=== PATIENT | female | born 1975 | race African-American/Black ===

== ENCOUNTER 2017-03-12 04:29 | Observation (INO) ==
[2017-03-12] MEDS ORDERED: ASPIRIN 325 MG TABLET ONE (05:10)
[2017-03-12] MEDS ORDERED: ASPIRIN 325 MG TABLET PO STA (05:20)
[2017-03-12 05:41] LABS: Basophils # 0.1 10*3/uL (0.0-0.2); Basophils % 0.5 % (0.0-0.8); Eosinophils # 0.3 10*3/uL (0.0-0.87); Eosinophils % 2.5 % (0.00-10.9); Hematocrit 42.7 VOL% (35.7-47.0); Immature Granulocytes % 0.3 %; Immature Granulocytes Absolute 0.03 #; Lymphocytes # 3.5 10*3/uL (1.4-4.0); Mean Corpuscular HGB Conc 32.8 GM/DL (32-36); Mean Corpuscular Hemoglobin 28 PG (27-34); Mean Corpuscular Volume 86.1 FL (87-102); Mean Platelet Volume 12.2 FL (9.6-12.0); Monocytes # 0.9 10*3/uL (0.11-0.8); Monocytes % 8.5 % (1.7-12.7); Neutrophils # 6.2 10*3/uL (1.4-7.4); Neutrophils % 56.2 % (38.7-73.9); Platelet Count 210 T/CUMM (130-400); Red Blood Count 4.96 MC/CUMM (3.8-5.5); Red Cell Distribution Width 15.1 % (9.3-17.3)
--- NOTE | 2017-03-12 06:02 | Emergency Department Note ---
IErick Kasabria, am scribing for, and in the presence of, Katarina Florez DO 05 :37. I, Katarina Florez DO, personally performed the services described in this documentation, ascribed by Andreea Suarez in my presence, and it is both accurate and complete 601 . Arrival - Arrival ED Nursing Triage Note: pt ambulatory to [facility] [place] with c/o right sided chest pain that started at 0400, patient states she vomited at 0330. thought she was having heartburn but became sob so came to be checked out. 02 sat on ra 97% in triage. denies cp in triage. Mode of Arrival: Ambulatory Limitations: No Limitations Source: Patient - History of Present Illness Consistency: constant Severity: moderate <Katarina Florez - Last Filed: 03/12/17 06:01> <Jerardo Mary - Last Filed: 03/12/17 06:48> - Arrival Chief Complaint: Chest Pain Stated Complaint: sob and chest pain Time Seen by Provider: 03/12/17 05:20 - History of Present Illness HPI Narrative: This is a 41 y/o black female presenting to the ED with c/o chest pain that onset this morning at 0300. She states she thought it was indigestion so she went to the store and go Xantac. Immediately following she vomited and her chest pain began to worsen. The pain is to the right side. Pt denies being in pain while obtaining the HPI. Pt sees Dr. Falcon for a cardiac evaluation and it was benign. She denies fever, chills, abdominal pain, back pain, and dysuria. Her PMHx is consistent with HTN. (Andreea Suarez) This is a 41 y/o black female presenting to the ED with c/o chest pain that onset this morning at 0300. She states she thought it was indigestion so she went to the store and go Xantac. Immediately following she vomited and her chest pain began to worsen. The pain is to the right side. Pt denies being in pain while obtaining the HPI. Pt sees Dr. Falcon for a cardiac evaluation and it was benign. She denies fever, chills, abdominal pain, back pain, and dysuria. Her PMHx is consistent with HTN. (Florez,Katarina) Allergies/Adverse Reactions: Allergies Allergy/AdvReac Type Severity Reaction Status Date / Time acetaminophen [From Tylenol] AdvReac Intermediate Nausea Verified 03/16/16 11:58 escitalopram [From Lexapro] AdvReac Intermediate Nausea Verified 03/16/16 11:43 Home Medications: Home Medications Medication Instructions Recorded Confirmed Type Lisinopril/Hydrochlorothiazide 1 tablet PO DAILY 12/16/15 03/12/17 History [Lisinopril-Hctz 20-25 mg Tab] ALPRAZolam [Xanax] 1 mg PO BID PRN 08/21/16 03/12/17 History Hydrocodone/Acetaminophen [Lortab 1 each PO TID PRN 08/21/16 03/12/17 History 10-325 mg Tablet] Review of System - Review of System 12 point system: reviewed and no additional remarkable complaints except as stated - Review of System Constitutional: Absent: chills, fever, weakness Eyes: Absent: redness, vision change Head/Ears/Nose/Throat: Absent: nasal drainage Respiratory: Absent: cough, wheezing Cardiovascular: Present: chest pain (right sided ). Absent: dyspnea on exertion Gastrointestinal: Present: nausea, vomiting. Absent: abdominal pain, diarrhea Genitourinary female: Absent: dysuria Musculoskeletal: Absent: arm pain, back pain, leg pain Skin: Absent: rash Neurological: Absent: headache, weakness, confusion, vertigo Psychiatric: Absent: anxiety Endocrine: Absent: fatigue Hematological/Lymphatic: Absent: easy bleeding Allergic/Immunologic: Absent: facial swelling <Katarina Florez - Last Filed: 03/12/17 06:01> Medical,Surgical,& Family Hx - Medical History Cardio: History of: Hypertension Psychological: History of: Anxiety Disorders Neurology: No history of: Seizures Musculoskeletal: History of: Back/Neck Problems, Herniated Disk - Surgical History Thoracic Surgeries: Patient denies;: Lobectomy Neurologic Surgeries: Patient denies: Neurologic Surgery Reproductive Surgeries: Surgical HX of;: Gynecologic Surgery, Tubal Ligation Patient denies;: Genitourinary Surgery - Social History Smoking Status: Current every day smoker Frequency of Alcohol Use: None Type of Drug Use: None <Katarina Florez - Last Filed: 03/12/17 06:01> Exam - General General appearance: alert, in no apparent distress - Head Head exam: Present: atraumatic, normocephalic, normal inspection - Eye Eye exam: Present: normal appearance, PERRL, EOMI - ENT ENT exam: Present: normal exam, normal oropharynx, mucous membranes moist, TM's normal bilaterally, normal external ear exam - Neck Neck exam: Present: normal inspection, full ROM, trachea midline. Absent: tenderness - Chest Chest inspection: Present: normal inspection, symmetric chest wall rise. Absent : tenderness - Respiratory Respiratory exam: Present: normal lung sounds bilaterally - Cardiovascular Cardiovascular exam: Present: regular rate, normal rhythm, normal heart sounds - Abdominal Exam Abdominal exam: Present: soft, normal bowel sounds. Absent: distention, tenderness - Extremities Exam Extremities exam: Present: normal inspection, full ROM, normal capillary refill. Absent: tenderness, pedal edema, calf tenderness - Back Exam Back exam: Present: normal inspection, full ROM. Absent: tenderness - Neurological Exam Neurological exam: Present: alert, oriented X3, CN II-XII intact, normal gait, reflexes normal - Psychiatric Psychiatric exam: Present: normal affect, normal mood - Skin Skin exam: Present: warm, dry, intact, normal color. Absent: diaphoresis <Katarina Florez - Last Filed: 03/12/17 06:01> Vital Signs: Vital Signs Temperature 97.5 F L 03/12/17 05:18 Pulse Rate 81 03/12/17 05:18 Respiratory Rate 20 03/12/17 05:18 Blood Pressure 124/84 03/12/17 05:18 O2 Sat by Pulse Oximetry 97 03/12/17 04:38 Course <Katarina Florez - Last Filed: 03/12/17 06:01> - Consultations Time: 06:48 <Jerardo Mary - Last Filed: 03/12/17 06:48> Course Narrative: Care assumed from Dr. Florez at 6 AM. (Jerardo Mary) - Consultations Consultation #1: Discussed with hospitalist. Patient will be admitted to their service. (Jerardo Mary) Results <Katarina Florez - Last Filed: 03/12/17 06:01> - Labs CBC & BMP: 03/12/17 05:07 03/12/17 05:07 Lab Results: I have reviewed the patients labs - EKG EKG results: interpreted by ERMD - Diagnostic Findings Procedure: Chest x-ray: image reviewed by me (No cardiomegaly, no pleural effusions, no infiltrates.) <Jerardo Mary - Last Filed: 03/12/17 06:48> - Labs Labs: Laboratory Tests 03/12/17 05:07 Troponin I < 0.015 (Jerardo Mary) - Impressions EKG: Normal sinus rhythm with rate of 78, normal ST-T waves, normal axis. (Jerardo Mary) Disposition <Katarina Florez - Last Filed: 03/12/17 06:01> Case discussed with: patient <Jerardo Mary - Last Filed: 03/12/17 06:48> Clinical Impression: Chest pain Disposition: Still a Patient Condition: Stable
[2017-03-12 06:10] LABS: Alanine Aminotransferase 28 U/L (13-56); Albumin 3.6 G/DL (3.4-5.0); Alkaline Phosphatase 62 U/L (45-117); Aspartate Amino Transferase 40 U/L (0-37); Blood Urea Nitrogen 18 MG/DL (7-18); Calcium 8.3 MG/DL (8.5-10.1); Glucose 94 MG/DL (74-106); Potassium 4.7 MMOL/L (3.5-5.1); Sodium 136 MMOL/L (136-145); Total Protein 6.8 G/DL (6.4-8.3); Troponin I Only < 0.015 NG/ML (0.00-0.045)
[2017-03-12 06:11] LABS: PT Patient Result 10.1 SECS; Partial Thromboplastin Time 29.4 SECS (0-40)
--- NOTE | 2017-03-12 07:16 | Hospitalist History & Physical ---
Assessment and Plan (1) Hypertension Status: Acute Assessment and plan: Blood pressures are stable now. We will restart home medication regimen and monitor blood pressures during the clinical encounter. Current Visit: Yes Qualifiers: Hypertension type: essential hypertension Qualified Code(s): I10 - Essential (primary) hypertension (2) Obesity Status: Acute Assessment and plan: Patient reported recent initiation of weight loss medications to assist with weight loss. Spoke in great detail with patient on known cardiovascular effects associated with the use of these agents. Current Visit: Yes Qualifiers: Obesity type: due to excess calories (3) Chest pain Status: Acute Assessment and plan: We will admit and perform complete cardiac work-up. Given the known risk factors ; the patient is at an increased risk for cardiac event. Current Visit: Yes Qualifiers: Chest pain type: unspecified Qualified Code(s): R07.9 - Chest pain, unspecified (4) Nicotine addiction Status: Acute Assessment and plan: The patient reports current nicotine use. Spoke in great detail the importance of cessation. Nicotine patch offered. Current Visit: Yes Qualifiers: Nicotine product type: cigarettes History of Present Illness Chief complaint: chest pain History of present illness: This is a 41 year old female that presented to the ED at [facility] this morning for the evaluation of right-sided chest pain. The patient has a medical history of hypertension, anxiety, nicotine addiction, chronic neck and back pain, depression, and morbid obesity. The patient has a surgical history of tubal ligation.She reported the onset of pain on this morning at 0300. She initially thought that she was having indigestion; so she went to the store and bought a coca-cola and Zantac. The reported that she took the medication with a small amount of the cola and started vomiting immediately. She reported that her chest pain began to immediately worsen and she started to experience shortness of breath. She became alarmed and drove to the ED for evaluation. The patient reported a previous episode in nature in the past. She reports that she was evaluated by Dr. Lowery for a cardiac evaluation which was essentially benign. She was given nitroglycerin for emergent use; however she reports that she has never had to use it. In addition, the patient reports a recent start of Adipex for weight loss. She reported that she started them on Sunday of last week; however she only takes half of the dose. Labs were obtained which were essentially unremarkable. Cardiac enzymes were obtained which revealed Total CK of 240, troponin of <0.015, and CKMB of <1.0. Chest radiograph was negative for acute processes. After brief discussion with both Dr. Florez and Dr. Rutledge, the patient will be admitted to the hospitalist service for continuation of care. Home Medications Medication Instructions Recorded Confirmed Type Lisinopril/Hydrochlorothiazide 1 tablet PO DAILY 12/16/15 03/12/17 History [Lisinopril-Hctz 20-25 mg Tab] ALPRAZolam [Xanax] 1 mg PO BID PRN 08/21/16 03/12/17 History Hydrocodone/Acetaminophen [Lortab 1 each PO TID PRN 08/21/16 03/12/17 History 10-325 mg Tablet] Allergies Allergy/AdvReac Type Severity Reaction Status Date / Time acetaminophen [From Tylenol] AdvReac Intermediate Nausea Verified 03/16/16 11:58 escitalopram [From Lexapro] AdvReac Intermediate Nausea Verified 03/16/16 11:43 Medical,Surgical,& Family Hx - Medical History Cardio: History of: Hypertension Psychological: History of: Anxiety Disorders Neurology: No history of: Seizures Musculoskeletal: History of: Back/Neck Problems, Herniated Disk - Surgical History Thoracic Surgeries: Patient denies;: Lobectomy Neurologic Surgeries: Patient denies: Neurologic Surgery Reproductive Surgeries: Surgical HX of;: Gynecologic Surgery, Tubal Ligation Patient denies;: Genitourinary Surgery - Social History Smoking Status: Current every day smoker Frequency of Alcohol Use: None Type of Drug Use: None 12 point system: reviewed and no additional remarkable complaints except as stated Exam - Constitutional Vitals: Period Temp Pulse Resp BP Sys/Hutson Pulse Ox Last 24 Hr 97.5 F-97.5 F 77-81 18-20 124-124/84-84 97 General appearance: no acute distress, over weight - Head Head exam: Present: normal inspection, normocephalic, atraumatic - Eye Eye exam: Present: EOMI. Absent: conjunctival injection Pupils: Present: RACHEL, normal accommodation - ENT ENT exam: Present: normal exam, normal external ear exam, normal oropharynx - Neck Neck exam: Present: normal inspection. Absent: lymphadenopathy, meningismus, tenderness, thyromegaly - Respiratory Respiratory exam: Present: clear to auscultation bilaterally. Absent: rales, rhonchi, stridor, wheezes - Cardiovascular Cardiovascular exam: Present: regular rate and rhythm. Absent: carotid bruit, diastolic murmur, gallop, JVD, rubs, systolic murmur - GI/Abdominal GI/Abdominal exam: Present: normal bowel sounds, soft - Extremities Exam Extremities exam: Present: normal inspection, normal capillary refill, full ROM. Absent: calf tenderness, edema - Back Exam Back exam: Present: normal inspection - Neurological Exam Neurological exam: Present: alert, oriented X3, CN II-XII intact - Psychiatric Psychiatric exam: Present: normal affect, normal mood - Skin Skin exam: Present: normal color, warm, dry Results - Labs CBC & BMP: 03/12/17 05:07 03/12/17 05:07 Lab Results: I have reviewed the past 24 hour labs
--- NOTE | 2017-03-12 09:35 | XRay Report ---
Portable chest Date: 03/12/2017 Clinical history: Shortness of breath Comparison: 11/22/2015 Technique: Portable AP sitting chest Findings: The heart is minimally larger in size. Progressive diffuse parenchymal findings especially at the lung bases. Stable mediastinum and osseous structures. Impression: Minimal atelectasis/infiltration/edema at the lung bases. PROCEDURE INTERPRETED AT [facility] DEPARTMENT OF RADIOLOGY Final Report Signed by: Dr. Marjorie Segura
[2017-03-12] MEDS ORDERED: ACETAMINOPHEN 325 MG TABLET PO PRN (12:32)
[2017-03-12] MEDS ORDERED: ONDANSETRON 4 MG/2 ML VIAL IV PRN (12:32)
[2017-03-12] MEDS: SODIUM CHLORIDE 0.9% 1,000 ML IV SCH (12:55)
[2017-03-12] MEDS ORDERED: ALPRAZolam 0.5 MG TABLET PO PRN (13:00)
[2017-03-12] MEDS ORDERED: ENOXAPARIN 40 MG/0.4 ML SYRINGE SUBCUT SCH (13:00)
--- NOTE | 2017-03-12 13:07 | Cardiology Consult Note ---
Assessment and Plan - Time spent with patient Time spent with patient: Less than 30 minutes (1) Heartburn Status: Acute Assessment and plan: This is the patient's complaint. She has normal EKG and first set of biomarkers are negative. She had an ischemic screening approximately 1 year ago according to her history. This is before the current acute computer system at [facility] I am unable to get the data. She has not had any exertional chest discomfort prior to this time I recommend that we rule out myocardial infarction with serial cardiac biomarkers and if this is negative she may have workup as an outpatient from a cardiovascular standpoint I would recommend discontinuation of her Adipex at this time. She did partake of alcoholic beverages yesterday which could have precipitated some gastritis and this in fact may be true heartburn. I would recommend getting lipids. Current Visit: Yes (2) Hypertension Status: Chronic Current Visit: Yes Qualifiers: Hypertension type: essential hypertension Qualified Code(s): I10 - Essential (primary) hypertension (3) Obesity Status: Chronic Current Visit: Yes Qualifiers: Obesity type: due to excess calories (4) Nicotine addiction Status: Chronic Current Visit: Yes Qualifiers: Nicotine product type: cigarettes History of Present Illness - Data of Consult Patient: known to practice within the last 3 years Consult date: 03/12/17 Requesting Physician: Keyon Rutledge Primary care physician: Chasity Falcon - Consult Narrative Reason for consult: Heartburn History of present illness: Ms. Reed is a 41 year old female who was awakened this morning around 3: 00 with what she thought was heartburn. She went to the local store and purchase some Zantac which she took and subsequently threw up she states that she felt better after this. She has not had any chest pain since one year ago when she was evaluated by Dr. Falcon and told that everything was "okay." She denies orthopnea lower extremity edema chest pain when she exerts herself. She denies any alcohol to excess however she states that she drank a daiquiri yesterday she does not partake of recreational drugs but she does smoke 1 pack of cigarettes a day. She has no family history of known coronary disease and no dyslipidemia. She is admitted to the hospital service and I was asked to see for chest pain in his heartburn. I reviewed her EKG is completely normal her first set of cardiac biomarkers are normal. Her only identifiable risk factors hypertension. She did state that she has recently been started on Adipex for weight loss. CC: Keyon Rutledge MD - Home Medications and Allergies Home Medications: Home Medications Medication Instructions Recorded Confirmed Type Lisinopril/Hydrochlorothiazide 1 tablet PO DAILY 12/16/15 03/12/17 History [Lisinopril-Hctz 20-25 mg Tab] ALPRAZolam [Xanax] 1 mg PO BID PRN 08/21/16 03/12/17 History Hydrocodone/Acetaminophen [Lortab 1 each PO TID PRN 08/21/16 03/12/17 History 10-325 mg Tablet] Allergies/Adverse Reactions: Allergies Allergy/AdvReac Type Severity Reaction Status Date / Time acetaminophen [From Tylenol] AdvReac Intermediate Nausea Verified 03/16/16 11:58 escitalopram [From Lexapro] AdvReac Intermediate Nausea Verified 03/16/16 11:43 - Constitutional Constitutional: Present: weight gain. Absent: anorexia, chills, malaise, night sweats - EENT Eyes: Absent: blurry vision, diplopia Ears: Absent: decreased hearing, ear discharge Nose, mouth and throat: Absent: dysphagia, epistaxis, headache(s), nasal congestion - Cardiovascular Cardiovascular: Absent: chest pain at rest, dyspnea, dyspnea on exertion, edema , orthopnea, palpitations - Respiratory Respiratory: Absent: cough, dyspnea on exertion - Gastrointestinal Gastrointestinal: Present: heartburn. Absent: change in bowel habits, coffee ground emesis, constipation, cramping, diarrhea, dyspepsia - Genitourinary Genitourinary: Absent: dysuria, flank pain - Musculoskeletal Musculoskeletal: Absent: arthralgias, joint swelling - Neurological Neurological: Absent: abnormal gait, abnormal speech, disequilibrium - Psychiatric Psychiatric: Present: anxiety - Endocrine Endocrine: Present: heat intolerance. Absent: cold intolerance - Hematologic/Lymphatic Hematologic/Lymphatic: Absent: easy bleeding, easy bruising Medical,Surgical,& Family Hx - Medical History Cardio: History of: Hypertension Psychological: History of: Anxiety Disorders Neurology: No history of: Seizures Musculoskeletal: History of: Back/Neck Problems, Herniated Disk - Surgical History Thoracic Surgeries: Patient denies;: Lobectomy Neurologic Surgeries: Patient denies: Neurologic Surgery Reproductive Surgeries: Surgical HX of;: Gynecologic Surgery (BTL), Tubal Ligation Patient denies;: Genitourinary Surgery - Social History Smoking Status: Current every day smoker Frequency of Alcohol Use: Rarely Type of Drug Use: None Marital Status: Lives With:: Children Functional capacity: independent ambulation Physical Examination Vital Signs Temp Pulse Resp BP Pulse Ox 97.5 F L 81 20 124/84 97 03/12/17 04:38 03/12/17 04:38 03/12/17 04:38 03/12/17 04:38 03/12/17 04:38 General: Present: Appears Well, Other (She is overweight) Neck: Present: Supple Neck, Midline Trachea Cardiac: Present: Reg Rate and Rhythm, S1/S2 Lungs: Present: Normal Exam Neuro: Present: Cranial Nerve 2-12 Intact Abdomen: Present: Soft, Active Bowel Sounds Skin: Present: Clear Musculoskeletal: Present: Erythematous Joints Gait: Present: Normal Gait Extremities: Present: Normal Gait, No Clubbing, No Cyanosis, No Edema. Absent: Edema Result/EKG - Labs CBC & BMP: 03/12/17 05:07 03/12/17 05:07 Labs: Laboratory Results - last 24 hr 03/12/17 03/12/17 03/12/17 05:07 05:07 05:07 WBC 11.0 RBC 4.96 Hgb 14.0 Hct 42.7 MCV 86.1 L MCH 28 MCHC 32.8 RDW 15.1 Plt Count 210 MPV 12.2 H Neut % (Auto) 56.2 Lymph % (Auto) 32.0 Republic % (Auto) 8.5 Eos % (Auto) 2.5 Baso % (Auto) 0.5 Neut # (Auto) 6.2 Lymph # (Auto) 3.5 Republic # (Auto) 0.9 H Eos # (Auto) 0.3 Baso # (Auto) 0.1 Immature Gran % 0.3 Nucleated RBC % 0.0 Immature Gran # 0.03 Nucleated RBCs # 0.00 INR 1.0 PT Patient/Control Mix 10.1 Circ Anticoag PTT 29.4 Sodium 136 Potassium 4.7 Chloride 104 Carbon Dioxide 24 Anion Gap 12.7 BUN 18 Creatinine 0.80 GFR Calculation 121 BUN/Creatinine Ratio 22.00 H Glucose 94 Calculated Osmolality 273.0 Calcium 8.3 L Total Bilirubin 0.40 AST 40 H ALT 28 Alkaline Phosphatase 62 Total Creatine Kinase 240 H CK-MB (CK-2) < 1.0 Troponin I < 0.015 Total Protein 6.8 Albumin 3.6 Globulin 3.2 Albumin/Globulin Ratio 1.1 - EKG EKG results: interpreted by me, WNL
--- NOTE | 2017-03-12 13:30 | EKG Report ---
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
[2017-03-12 13:41] LABS: Risk Ratio 4.61; VLDL CHOLESTEROL 50.2 MG/DL
[2017-03-12] MEDS: NICOTINE 21 MG/24 HR PATCH TRANSDERM SCH (13:48)
[2017-03-13] MEDS: SODIUM CHLORIDE 0.9% 1,000 ML IV SCH (04:46)
[2017-03-13 05:49] LABS: Calcium 8.3 MG/DL (8.5-10.1); Magnesium 2.2 MG/DL (1.8-2.4); Osmolality,Calculated 281.3 MOS/KG (273-304); Potassium 4.5 MMOL/L (3.5-5.1)
[2017-03-13 06:38] LABS: Basophils # 0.1 10*3/uL (0.0-0.2); Basophils % 0.7 % (0.0-0.8); Eosinophils # 0.3 10*3/uL (0.0-0.87); Eosinophils % 3.8 % (0.00-10.9); Hematocrit 40.8 VOL% (35.7-47.0); Hemoglobin 13.3 GM/DL (12.0-16.0); Immature Granulocytes % 0.1 %; Immature Granulocytes Absolute 0.01 #; Lymphocytes # 3.5 10*3/uL (1.4-4.0); Lymphocytes % 46.1 % (21.3-54.2); Mean Corpuscular HGB Conc 32.6 GM/DL (32-36); Mean Corpuscular Hemoglobin 28 PG (27-34); Mean Corpuscular Volume 85.9 FL (87-102); Mean Platelet Volume 11.3 FL (9.6-12.0); Monocytes # 0.6 10*3/uL (0.11-0.8); Monocytes % 7.2 % (1.7-12.7); Neutrophils # 3.2 10*3/uL (1.4-7.4); Neutrophils % 42.1 % (38.7-73.9); Platelet Count 200 T/CUMM (130-400); Red Blood Count 4.75 MC/CUMM (3.8-5.5); Red Cell Distribution Width 14.9 % (9.3-17.3); White Blood Count 7.6 T/CUMM (4-12)
--- NOTE | 2017-03-13 08:33 | EKG Report ---
Stationary ECG Study [facility] Test Date: 03/12/2017 4:52:44 AM Pat Name: FACUNDO DUFF Department: Room: 284 Gender: F Program Director Substance Abuse: : 1975 Requested by: Jerardo Tripp Order Number: [id number] Reading MD: MATT ZAMORA Intervals [place] Rate: 78 P: 68 IA: 161 QRS: 88 QRSD: 89 T: 66 QT: 365 QTc: 398 Interpretive Statements SINUS RHYTHM Electronically Signed On 03-14-17 20:22:07 CDT by MATT ZAMORA [email or web address]
[2017-03-13] MEDS ORDERED: LISINOPRIL/HCTZ 20-25 MG TABLET PO SCH (09:00)
[2017-03-13] MEDS ORDERED: ASPIRIN EC 81 MG TABLET PO SCH (09:00)
[2017-03-13] MEDS ORDERED: PANTOPRAZOLE 40 MG TABLET PO SCH (09:00)
--- NOTE | 2017-03-13 09:36 | Cardiology Progress Note ---
<Amita Lowe - Last Filed: 03/13/17 10:49> Assessment and Plan (1) Atypical chest pain Status: Resolved Assessment and plan: See plan of care listed below. Current Visit: Yes (2) Hypertension Status: Chronic Assessment and plan: See plan of care listed below. Current Visit: Yes Qualifiers: Hypertension type: essential hypertension Qualified Code(s): I10 - Essential (primary) hypertension (3) Nicotine addiction Status: Chronic Assessment and plan: See plan of care listed below. Current Visit: Yes Qualifiers: Nicotine product type: cigarettes (4) Obesity Status: Chronic Assessment and plan: See plan of care listed below. Current Visit: Yes Qualifiers: Obesity type: due to excess calories (5) Hypertriglyceridemia Status: Acute Assessment and plan: See plan of care listed below. Current Visit: Yes Cardiology - PN: Subj Interval history: Regional Transfer Liaison: New to cardiology SUMMARY: Ms. Reed is a 41 year old female who presented with what she thought was heartburn. She is admitted to the hospital service and Cardiology was asked to see to further evaluate. PMH includes: Hypertension and anxiety. Reports that she was recently started on Adipex for weight loss. She has normal EKG and cardiac biomarkers are negative. She had an ischemic screening approximately 1 year ago according to her history. This is before the current computer system at [facility] and unable to get the data. Lipids were reviewed. Triglycerides are noted to be 251. March 13, 2017 Update: Patient has done well overnight. This morning, she is without chest pain, heaviness and tightness. However, she does report that she had mild chest discomfort last night after eating lasagna. She describes as a sharp midsternal pain. Nonradiating. Consistent with heartburn. Labs have been reviewed, overall unremarkable. Troponin has been negative 3. EKG unremarkable. Triglycerides noted to be 251. Will order hemoglobin A1c. Vital signs are stable. Patient is currently normal sinus rhythm with heart rates in the 60s without any overt arrhythmias or ectopy noted. Assessment/plan: 1. ATYPICAL CHEST PAIN - Currently without chest pain, heaviness and tightness. No exertional chest discomfort prior to admission. Troponin has been negative 3. EKG is unremarkable. Patient has ruled out for myocardial infarction. At this point, patient's symptoms are most consistent with heartburn. Recommend to continue PPI and discontinue Adipex. After discussing with Dr. Putnam, we will sign off. Will schedule patient a follow-up appointment with Dr. Putnam to discuss the need for further cardiac workup as an outpatient. 2. HYPERTENSION - Well controlled. Continue current plan of care. 3. OBESITY - Weight loss encouraged. 4. HYPERTRIGLYCERIDEMIA - Will check hemoglobin A1c. Defer further management to attending. 5. TOBACCO ABUSE - Smoking cessation encouraged. Exam (Progress Note) - Constitutional Vitals: Period Temp Pulse Resp BP Sys/Hutson Pulse Ox Last 24 Hr 96.9 F-98.6 F 62-83 16-20 105-142/59-81 96-99 Exam: General: Appears well with no apparent distress. Pleasant and cooperative. Appears comfortable. HEENT: PERRL, normocephalic, atraumatic. Mucous membranes moist. No jaundice noted. Conjunctiva moist and clear, sclerae anicteric Neck: No JVD/HJR, no thyromegaly or lymphadenopathy noted. No carotid bruit appreciated Cardiac: Regular rate and rhythm. No murmur rub or gallop. Lungs: Clear to auscultation without accessory muscle use to assist the respiratory pattern. Not requiring oxygen. Abdomen: Soft, bowel sounds normoactive. Nontender and nondistended. No abdominal bruit or thrill noted. No masses noted. Extremities: No clubbing, cyanosis noted. No edema noted. Upper extremity pulses 2+. Lower extremity pulses 2+. Capillary refill less than 3 seconds. Skin: No unusual lesions or rashes. No skin breakdown appreciated. Neuro: Awake, alert and oriented 3. Moves all extremities well without hemiparesis or paralysis. No essential tremor is appreciated. Result/EKG - Labs CBC & BMP: 03/13/17 06:31 03/13/17 04:47 Lab Results: I have reviewed the past 24 hour labs Labs: Laboratory Results - last 24 hr 03/12/17 03/12/17 03/12/17 05:07 13:36 16:17 WBC RBC Hgb Hct MCV MCH MCHC RDW Plt Count MPV Neut % (Auto) Lymph % (Auto) [place] % (Auto) Eos % (Auto) Baso % (Auto) Neut # (Auto) Lymph # (Auto) [place] # (Auto) Eos # (Auto) Baso # (Auto) Immature Gran % Nucleated RBC % Immature Gran # Nucleated RBCs # Sodium Potassium Chloride Carbon Dioxide Anion Gap BUN Creatinine GFR Calculation BUN/Creatinine Ratio Glucose Calculated Osmolality Calcium Magnesium Troponin I < 0.015 < 0.015 B-Natriuretic Peptide Triglycerides 251 H Cholesterol 189 LDL Cholesterol 118.0 VLDL Cholesterol 50.2 HDL Cholesterol 41 Heart Disease Risk Ratio 4.61 03/12/17 03/13/17 03/13/17 19:21 04:47 04:47 WBC RBC Hgb Hct MCV MCH MCHC RDW Plt Count MPV Neut % (Auto) Lymph % (Auto) [place] % (Auto) Eos % (Auto) Baso % (Auto) Neut # (Auto) Lymph # (Auto) [place] # (Auto) Eos # (Auto) Baso # (Auto) Immature Gran % Nucleated RBC % Immature Gran # Nucleated RBCs # Sodium 141 Potassium 4.5 Chloride 108 H Carbon Dioxide 23 Anion Gap 14.5 BUN 14 Creatinine 0.60 GFR Calculation 157 BUN/Creatinine Ratio 23.00 H Glucose 94 Calculated Osmolality 281.3 Calcium 8.3 L Magnesium 2.2 Troponin I < 0.015 B-Natriuretic Peptide 7 Triglycerides Cholesterol LDL Cholesterol VLDL Cholesterol HDL Cholesterol Heart Disease Risk Ratio 03/13/17 06:31 WBC 7.6 D RBC 4.75 Hgb 13.3 Hct 40.8 MCV 85.9 L MCH 28 MCHC 32.6 RDW 14.9 Plt Count 200 MPV 11.3 Neut % (Auto) 42.1 Lymph % (Auto) 46.1 [place] % (Auto) 7.2 Eos % (Auto) 3.8 Baso % (Auto) 0.7 Neut # (Auto) 3.2 Lymph # (Auto) 3.5 [place] # (Auto) 0.6 Eos # (Auto) 0.3 Baso # (Auto) 0.1 Immature Gran % 0.1 Nucleated RBC % 0.0 Immature Gran # 0.01 Nucleated RBCs # 0.00 Sodium Potassium Chloride Carbon Dioxide Anion Gap BUN Creatinine GFR Calculation BUN/Creatinine Ratio Glucose Calculated Osmolality Calcium Magnesium Troponin I B-Natriuretic Peptide Triglycerides Cholesterol LDL Cholesterol VLDL Cholesterol HDL Cholesterol Heart Disease Risk Ratio Specialty Discharge - Follow Up or Referrals Follow up with: Chasity Falcon MD [Physician] - 03/29/17 2:00 pm <Sarah Putnam - Last Filed: 03/13/17 13:35> Assessment and Plan (1) Heartburn Status: Acute Current Visit: Yes (2) Hypertension Status: Chronic Current Visit: Yes Qualifiers: Hypertension type: essential hypertension Qualified Code(s): I10 - Essential (primary) hypertension (3) Obesity Status: Chronic Current Visit: Yes Qualifiers: Obesity type: due to excess calories (4) Nicotine addiction Status: Chronic Current Visit: Yes Qualifiers: Nicotine product type: cigarettes Cardiology - PN: Subj Interval history: I saw and examined and discussed the patient with Ms. Lowe today also examined her and discussed with her about the details of her findings. Her chest pain is atypical. Plans for scheduled discharge and I agree. She will follow with Dr. Falcon her primary weekend caregiver. We also counseled her specifically on tobacco cessation. I think the symptoms related to the daiquiri that she had the day before and they seem like they are GI I do not think drinking is a problem with for her but I think she was intolerant of this dacryon empty stomach. She has a low to intermediate risk cardiac profile I recommended also that she avoid Adipex and walk. Exam (Progress Note) - Constitutional Vitals: Period Temp Pulse Resp BP Sys/Hutson Pulse Ox Last 24 Hr 96.9 F-98.8 F 62-83 16-20 105-142/59-81 96-98 Result/EKG - Labs CBC & BMP: 03/13/17 06:31 03/13/17 04:47 Labs: Laboratory Results - last 24 hr 03/12/17 03/12/17 03/12/17 05:07 13:36 16:17 WBC RBC Hgb Hct MCV MCH MCHC RDW Plt Count MPV Neut % (Auto) Lymph % (Auto) [place] % (Auto) Eos % (Auto) Baso % (Auto) Neut # (Auto) Lymph # (Auto) [place] # (Auto) Eos # (Auto) Baso # (Auto) Immature Gran % Nucleated RBC % Immature Gran # Nucleated RBCs # Sodium Potassium Chloride Carbon Dioxide Anion Gap BUN Creatinine GFR Calculation BUN/Creatinine Ratio Glucose Hemoglobin A1c Calculated Osmolality Calcium Magnesium Troponin I < 0.015 < 0.015 B-Natriuretic Peptide Triglycerides 251 H Cholesterol 189 LDL Cholesterol 118.0 VLDL Cholesterol 50.2 HDL Cholesterol 41 Heart Disease Risk Ratio 4.61 03/12/17 03/13/17 03/13/17 19:21 04:47 04:47 WBC RBC Hgb Hct MCV MCH MCHC RDW Plt Count MPV Neut % (Auto) Lymph % (Auto) [place] % (Auto) Eos % (Auto) Baso % (Auto) Neut # (Auto) Lymph # (Auto) [place] # (Auto) Eos # (Auto) Baso # (Auto) Immature Gran % Nucleated RBC % Immature Gran # Nucleated RBCs # Sodium 141 Potassium 4.5 Chloride 108 H Carbon Dioxide 23 Anion Gap 14.5 BUN 14 Creatinine 0.60 GFR Calculation 157 BUN/Creatinine Ratio 23.00 H Glucose 94 Hemoglobin A1c Calculated Osmolality 281.3 Calcium 8.3 L Magnesium 2.2 Troponin I < 0.015 B-Natriuretic Peptide 7 Triglycerides Cholesterol LDL Cholesterol VLDL Cholesterol HDL Cholesterol Heart Disease Risk Ratio 03/13/17 03/13/17 06:24 06:31 WBC 7.6 D RBC 4.75 Hgb 13.3 Hct 40.8 MCV 85.9 L MCH 28 MCHC 32.6 RDW 14.9 Plt Count 200 MPV 11.3 Neut % (Auto) 42.1 Lymph % (Auto) 46.1 [place] % (Auto) 7.2 Eos % (Auto) 3.8 Baso % (Auto) 0.7 Neut # (Auto) 3.2 Lymph # (Auto) 3.5 [place]rie # (Auto) 0.6 Eos # (Auto) 0.3 Baso # (Auto) 0.1 Immature Gran % 0.1 Nucleated RBC % 0.0 Immature Gran # 0.01 Nucleated RBCs # 0.00 Sodium Potassium Chloride Carbon Dioxide Anion Gap BUN Creatinine GFR Calculation BUN/Creatinine Ratio Glucose Hemoglobin A1c 5.5 Calculated Osmolality Calcium Magnesium Troponin I B-Natriuretic Peptide Triglycerides Cholesterol LDL Cholesterol VLDL Cholesterol HDL Cholesterol Heart Disease Risk Ratio
[2017-03-13] MEDS: NICOTINE 21 MG/24 HR PATCH TRANSDERM SCH (10:00)
--- NOTE | 2017-03-13 10:33 | Discharge Summary ---
Hospital Course - Hospital Course Hospital Course: The patient was admitted to the hospital with atypical chest discomfort. He was reproduced with eating spicy meal. The patient had graded exercise tolerance test with nuclear medicine study a year ago which revealed no cardiac ischemia. The patient was admitted to the hospital and myocardial infarction was ruled out by EKG and enzymes. The patient cardiology consultation with Dr. Diaz. Our plan is to add twice daily Zantac and to discharge home on her usual home medications for follow-up in the office to consider further screening tests at that time. On the date of discharge, the chest is clear and abdomen soft. Heart has regular rate and rhythm. Time required for examination the patient education and document preparation was 32 minutes. - Time spent with patient Time with patient DS: Greater than 30 minutes Diagnosis - Discharge Diagnosis (1) Hypertension Status: Chronic (2) Atypical chest pain Status: Resolved Specialty Discharge - Follow Up or Referrals Follow up with: Sarah Putnam DO [Physician] - (3 WEEKS ) Discharge Plan - Discharge Data Disposition: Disch To Home/Self Care Condition at Discharge: Stable Discharge Diet: heart healthy Activity: resume usual activities as tolerated - Discharge Medications New Ranitidine Tab [Zantac Tab] 150 mg PO BID #120 tablet Continue Lisinopril/Hydrochlorothiazide [Lisinopril-Hctz 20-25 mg Tab] 1 tablet PO DAILY Hydrocodone/Acetaminophen [Lortab 10-325 mg Tablet] 1 each PO TID PRN PRN Reason: Pain ALPRAZolam [Xanax] 1 mg PO BID PRN PRN Reason: Anxiety - Follow Up or Referral Follow Up: Sarah Putnam DO [Physician] - (3 WEEKS ) - Forms/Instructions Exam - Constitutional Vitals: Period Temp Pulse Resp BP Sys/Hutson Pulse Ox Last 24 Hr 96.9 F-98.6 F 62-83 16-20 105-142/59-81 96-99 Discharge Results Labs on day of discharge: Labs from last 24 hours 03/13/17 03/13/17 03/13/17 06:31 06:24 04:47 WBC 7.6 D RBC 4.75 Hgb 13.3 Hct 40.8 MCV 85.9 L MCH 28 MCHC 32.6 RDW 14.9 Plt Count 200 MPV 11.3 Neut % (Auto) 42.1 Lymph % (Auto) 46.1 [place] % (Auto) 7.2 Eos % (Auto) 3.8 Baso % (Auto) 0.7 Neut # (Auto) 3.2 Lymph # (Auto) 3.5 [place] # (Auto) 0.6 Eos # (Auto) 0.3 Baso # (Auto) 0.1 Immature Gran % 0.1 Nucleated RBC % 0.0 Immature Gran # 0.01 Nucleated RBCs # 0.00 Sodium Potassium Chloride Carbon Dioxide Anion Gap BUN Creatinine GFR Calculation BUN/Creatinine Ratio Glucose Hemoglobin A1c 5.5 Calculated Osmolality Calcium Magnesium Troponin I B-Natriuretic Peptide 7 Triglycerides Cholesterol LDL Cholesterol VLDL Cholesterol HDL Cholesterol Heart Disease Risk Ratio 03/13/17 03/12/17 03/12/17 04:47 19:21 16:17 WBC RBC Hgb Hct MCV MCH MCHC RDW Plt Count MPV Neut % (Auto) Lymph % (Auto) [place] % (Auto) Eos % (Auto) Baso % (Auto) Neut # (Auto) Lymph # (Auto) [place] # (Auto) Eos # (Auto) Baso # (Auto) Immature Gran % Nucleated RBC % Immature Gran # Nucleated RBCs # Sodium 141 Potassium 4.5 Chloride 108 H Carbon Dioxide 23 Anion Gap 14.5 BUN 14 Creatinine 0.60 GFR Calculation 157 BUN/Creatinine Ratio 23.00 H Glucose 94 Hemoglobin A1c Calculated Osmolality 281.3 Calcium 8.3 L Magnesium 2.2 Troponin I < 0.015 < 0.015 B-Natriuretic Peptide Triglycerides Cholesterol LDL Cholesterol VLDL Cholesterol HDL Cholesterol Heart Disease Risk Ratio 03/12/17 03/12/17 13:36 05:07 WBC RBC Hgb Hct MCV MCH MCHC RDW Plt Count MPV Neut % (Auto) Lymph % (Auto) [place] % (Auto) Eos % (Auto) Baso % (Auto) Neut # (Auto) Lymph # (Auto) [place] # (Auto) Eos # (Auto) Baso # (Auto) Immature Gran % Nucleated RBC % Immature Gran # Nucleated RBCs # Sodium Potassium Chloride Carbon Dioxide Anion Gap BUN Creatinine GFR Calculation BUN/Creatinine Ratio Glucose Hemoglobin A1c Calculated Osmolality Calcium Magnesium Troponin I < 0.015 B-Natriuretic Peptide Triglycerides 251 H Cholesterol 189 LDL Cholesterol 118.0 VLDL Cholesterol 50.2 HDL Cholesterol 41 Heart Disease Risk Ratio 4.61 DS: Provider Date of admission: 03/12/17 07:12 Primary care physician: Millicent Salomon MD Attending physician on admission: Keyon Rutledge MD Consults: 03/12/17 12:32 Consult to Physician [CONS] Routine Comment: chest pain Consulting Provider: Sarah Putnam Discharging clinician: Keyon Rutledge MD
[2017-03-13 11:58] VITALS: BP 119/60
== END 2017-03-13 13:24 | disposition home or self-care (01) ==
LOC: N.ED 04:29 → INTOOBSV 07:12 → N.EDINP 07:12 → N.TELEN 07:46
PROVIDERS: ADMIT Internal Medicine; ATTEND Internal Medicine